=== PATIENT | female | born 1985 | race Caucasian/White ===

== ENCOUNTER → 2020-02-01 | Outpatient (CLI) | payer MEDICAID ==
[~2020-02-01] MED LIST: HYDR-4226 PO; OMEP20TA7 PO
[2020-02-01 15:34] LABS: BASOPHILS % (AUTO) 1 % (0-10); EOSINOPHILS % (AUTO) 1 % (0-10); HEMATOCRIT 32 % (35-52); HEMOGLOBIN 11.2 G/DL (11.5-16.0); LYMPHOCYTES % (AUTO) 21 % (12-44); MEAN CORPUSCULAR HEMOGLOBIN 33 PG (25-34); MEAN CORPUSCULAR HGB CONC 35 G/DL (32-36); MEAN CORPUSCULAR VOLUME 94 FL (80-99); MONOCYTES % (AUTO) 5 % (0-12); NEUTROPHILS % (AUTO) 71 % (42-75); PLATELET COUNT 282 10^3/uL (130-400); WHITE BLOOD COUNT 10.1 10^3/uL (4.3-11.0)
[2020-02-01 15:35] LABS: BASOPHILS # (AUTO) 0.1 10^3/uL (0.0-0.1); EOSINOPHILS # (AUTO) 0.1 10^3/uL (0.0-0.3); LYMPHOCYTES # (AUTO) 2.2 X 10^3 (1.0-4.0); MONOCYTES # (AUTO) 0.5 X 10^3 (0.0-1.0); NEUTROPHILS # (AUTO) 7.2 X 10^3 (1.8-7.8)
== END ==
LOC: LAB FS 14:06
PROVIDERS: ATTEND Family Medicine
DX: Z34.81 Encounter for supervision of other normal pregnancy, first trimester (principal)
CPT/HCPCS: 36415; 80055; 82105; 84702; 86336; 86703; 86762; 87088

== ENCOUNTER → 2020-02-02 | Outpatient (CLI) | payer MEDICAID | LOC: LABNPT 14:57 | PROVIDERS: ATTEND Family Medicine | DX: Z34.82 Encounter for supervision of other normal pregnancy, second trimester (principal) | CPT/HCPCS: 87491; 87591 ==

== ENCOUNTER → 2020-04-04 | Outpatient (CLI) | payer MEDICAID ==
[2020-04-04 15:04] LABS: WHITE BLOOD COUNT 11.6 10^3/uL (4.3-11.0)
[2020-04-04 15:05] LABS: MEAN PLATELET VOLUME 10.1 FL (7.4-10.4)
== END ==
LOC: LAB FS 14:15
PROVIDERS: ATTEND Family Medicine
DX: Z34.92 Encounter for supervision of normal pregnancy, unspecified, second trimester (principal)
CPT/HCPCS: 36415; 82950; 85027; 86780

== ENCOUNTER → 2020-04-14 | Outpatient (CLI) | payer MEDICAID | LOC: LAB FS 09:40 | PROVIDERS: ATTEND Family Medicine | DX: R73.09 Other abnormal glucose (principal) | CPT/HCPCS: 36415; 82951; 82952 ==

== ENCOUNTER → 2020-04-25 | Outpatient (CLI) | payer MEDICAID ==
--- NOTE | 2020-04-25 11:31 | Diagnostic Imaging Report ---
INDICATION: High risk . Evaluate growth. TECHNIQUE: Multiple real-time grayscale images were obtained over the gravid uterus. COMPARISON: None. FINDINGS: Single live intrauterine in cephalic presentation. Placenta is anteriorly positioned and there are no features of previa. The RAVINDER is normal at 14.1 cm. anatomic survey was not performed on this limited exam. Biometrical measurements are as follows: Biparietal 8.39 cm, age 33 weeks 6 days. Head circumference 30.42 cm, age 33 weeks 6 days. Abdominal circumference 28.45 cm, age 32 weeks 4 days. Femur length 6.28 cm, age 32 weeks 4 days. Sonographic estimate age: 33 weeks 2 days. Sonographic estimated date of delivery: 06/11/2020. Estimated Weight: 2038 gm (+/- 298 gm). LMP percentile: 77%. heart rate: 135 beats per minute. number: 1 of 1. IMPRESSION: 1. Single live intrauterine with an estimated gestational age of 33 weeks and 2 days. Dictated by: Dictated on workstation # [id number]
== END ==
LOC: RAD FS 07:55
PROVIDERS: ATTEND Family Medicine
DX: O09.93 Supervision of high risk pregnancy, unspecified, third trimester (principal); Z3A.33 33 weeks gestation of pregnancy
CPT/HCPCS: 76805

== ENCOUNTER 2020-06-17 10:36 | Inpatient (IN) | payer MEDICAID ==
[2020-06-17] VITALS (18 sets, daily range): BP systolic 117–197; BP diastolic 59–106
[~2020-06-17 10:36] MED LIST changes: +OXYTOCIN PRE-MIX DRIP 500 ML IV ONE
[2020-06-17] MEDS ORDERED: LIDOCAINE/EPI 2% 1:200,00 (XYLOCAINE) 10 ML VIAL ONE (10:40)
[2020-06-17] MEDS ORDERED: KETOROLAC 30 MG/ML VIAL ONE (10:45)
[2020-06-17] MEDS ORDERED: HYDROcodone/APAP 5 MG/325 MG (LORTAB) TAB ONE (10:45)
[2020-06-17] MEDS: OXYTOCIN PRE-MIX DRIP 500 ML IV SCH ×2 (10:46→11:26)
[2020-06-17] MEDS ORDERED: MEASLES,MUMPS,RUBELLA 1 EA INJ SQ ONE (11:15)
[2020-06-17] MEDS ORDERED: BENZOCAINE/MENTHOL (DERMOPLAST) 60 ML CAN TP PRN (11:15)
[2020-06-17] MEDS ORDERED: DIBUCAINE (NUPERCAINAL) 1% OINT 30 GM TOP PRN (11:15)
[2020-06-17] MEDS ORDERED: D5 LR IV SOLUTION 1,000 ML IV SCH (11:15)
[2020-06-17] MEDS ORDERED: WITCH HAZEL(TUCKS) 40 EA JAR TOP PRN (11:15)
[2020-06-17] MEDS ORDERED: KETOROLAC 30 MG/ML VIAL IVP ONE (11:15)
[2020-06-17] MEDS ORDERED: HYDROcodone/APAP 5 MG/325 MG (LORTAB) TAB PO PRN (11:15)
[2020-06-17] MEDS ORDERED: TETANUS,DIPTH,PERTUSS P/F (BOOSTRIX) 0.5 ML VIAL IM ONE (11:15)
--- NOTE | 2020-06-17 11:17 | History & Physical-OB ---
OB - Chief Complaint & HPI Date/Time Date of Admission: Date of Admission: Jun 17, 2020 at 10:36 am Date seen by a Provider: Jun 17, 2020 Time Seen by a Provider: 10:45 Chief Complaint/History OB-Reason for Admission/Chief: immediate Hx : 2 Hx Para: 2 Expected Date of Delivery: Jun 23, 2020 Gestational Age in Weeks: 39 Gestational Age in Days: 1 Other reason for admission: Patient brought in by EMS, having delivered in the ambulance. Placenta still not out. Patient reports having contractions that started at 0500 am, but that things got severe at 9 and she called EMS. Infant is bedside under warmer doing well upon my arrival. Admission Nurse Assessment Rev: Yes History of Labs B pos Antibody neg RI RPR NR HBsAg NR HIV NR GC neg GBS neg Allergies and Home Medications Allergies Coded Allergies: No Known Drug Allergies (Unverified , 06/17/19) Home Medications Hydrocodone/Acetaminophen 1 Each Tablet, 1 TAB PO Q6H Prescribed by: KENNY MCCALL on 06/17/19 1437 Omeprazole 20 Mg Tablet., 20 MG PO DAILY, (Reported) Patient Home Medication List Home Medication List Reviewed: Yes OB - History Hx of Present Care: Yes Ultrasounds: Normal mid trimester US Obstetrical Complications: None Medical Complications: None Patient Past Medical History n/A Social History/Family History 2nd Hand Smoke Exposure: Yes Immunizations Date of Influenza Vaccine: Jan 06, 2019 OB - Admission Exam Physical Exam HEENT: NCAT Heart: Rhythm Normal Lungs: Clear OB - Assessment/Plan/Diagnosis Assessment Admission Dx 34 yo 10-15 minute immediately PP from GBS neg Admission Status: Inpatient Order (span 2 midnights) Reason for Inpatient Admission: delivery Plan Other Plan Admission labs and pain meds ordered. Await delivery of placenta SHARLA THOMASON DO Jun 17, 2020 11:16 am
[2020-06-17] MEDS ORDERED: OXYTOCIN PRE-MIX DRIP 500 ML IV ONE (11:18)
--- NOTE | 2020-06-17 11:19 | Postpartum Progress Note ---
Note Note 10 min Subjective: Patient is cramping and uncomfortable, placenta is still in place. Objective: Physical Exam: Cord blood collected from umbilical cord, and then placenta is delivered intact. There is a 1st degree perineal laceration repaired using 3-0 rapide in usual fashion EBL during my evaluation 250mL Assessment: NVSD Precipitous delivery GBS neg Plan: Routine care. Encourage breast feeding. Encourage ambulation. Ferrous sulfate supplementation. SHARLA THOMASON DO Jun 17, 2020 11:19 am
[2020-06-17] MEDS ORDERED: hydrALAZINE (APESOLINE) 20 MG/ML VIAL IV PRN (12:45)
[2020-06-17] MEDS: LABETALOL 200 MG (NORMODYNE) TAB PO SCH ×2 (13:00→21:19)
[2020-06-17] MEDS ORDERED: CATHETER FLUSH 10 ML SYR IV SCH ×2 (14:00)
[2020-06-17 14:15] LABS: BASOPHILS % (AUTO) 0 % (0-10); EOSINOPHILS % (AUTO) 0 % (0-10); HEMATOCRIT 39 % (35-52); HEMOGLOBIN 13.2 g/dL (11.5-16.0); LYMPHOCYTES # (AUTO) 1.4 10^3/uL (1.0-4.0); LYMPHOCYTES % (AUTO) 10 % (12-44); MEAN CORPUSCULAR HEMOGLOBIN 33 pg (25-34); MEAN CORPUSCULAR HGB CONC 34 g/dL (32-36); MEAN CORPUSCULAR VOLUME 96 fL (80-99); MEAN PLATELET VOLUME 10.6 fL (9.0-12.2); MONOCYTES # (AUTO) 0.3 10^3/uL (0.0-1.0); MONOCYTES % (AUTO) 2 % (0-12); NEUTROPHILS # (AUTO) 11.9 10^3/uL (1.8-7.8); NEUTROPHILS % (AUTO) 86 % (42-75); PLATELET COUNT 224 10^3/uL (130-400); WHITE BLOOD COUNT 13.8 10^3/uL (4.3-11.0)
[2020-06-17 14:32] LABS: ALANINE AMINOTRANSFERASE 18 U/L (0-55); ALKALINE PHOSPHATASE 195 U/L (40-136); BILIRUBIN,TOTAL 0.2 MG/DL (0.1-1.0); BUN/CREATININE RATIO 13; CARBON DIOXIDE 17 MMOL/L (21-32); CHLORIDE 109 MMOL/L (98-107); CREATININE SERUM 0.62 MG/DL (0.60-1.30); GFR ESTIMATED > 60; GLUCOSE 145 MG/DL (70-105); POTASSIUM 3.9 MMOL/L (3.6-5.0); SODIUM 135 MMOL/L (135-145); TOTAL PROTEIN 5.9 GM/DL (6.4-8.2)
[2020-06-17] MEDS ORDERED: FLU QUADRIvalent (3YOA+) 60 mcg/0.5 ml 2020-21 (AFLURIA) IM ONE (15:30)
[2020-06-17] MEDS: IBUPROFEN 600 MG (MOTRIN) TAB PO SCH (17:52)
[2020-06-17] MEDS: DOCUSATE SODIUM 100 MG (COLACE) CAP PO SCH (21:19)
[2020-06-18] MEDS: IBUPROFEN 600 MG (MOTRIN) TAB PO SCH ×3 (00:13→12:36)
[2020-06-18 02:27] VITALS: BP 113/57
[2020-06-18 05:48] VITALS: BP 111/59
[2020-06-18 06:03] LABS: BASOPHILS # (AUTO) 0.1 10^3/uL (0.0-0.1); BASOPHILS % (AUTO) 0 % (0-10); EOSINOPHILS # (AUTO) 0.1 10^3/uL (0.0-0.3); EOSINOPHILS % (AUTO) 1 % (0-10); HEMATOCRIT 31 % (35-52); HEMOGLOBIN 10.4 g/dL (11.5-16.0); LYMPHOCYTES # (AUTO) 2.8 10^3/uL (1.0-4.0); LYMPHOCYTES % (AUTO) 25 % (12-44); MEAN CORPUSCULAR HEMOGLOBIN 33 pg (25-34); MEAN CORPUSCULAR HGB CONC 34 g/dL (32-36); MEAN CORPUSCULAR VOLUME 97 fL (80-99); MEAN PLATELET VOLUME 10.9 fL (9.0-12.2); MONOCYTES # (AUTO) 0.6 10^3/uL (0.0-1.0); MONOCYTES % (AUTO) 6 % (0-12); NEUTROPHILS # (AUTO) 7.5 10^3/uL (1.8-7.8); NEUTROPHILS % (AUTO) 67 % (42-75); PLATELET COUNT 197 10^3/uL (130-400); WHITE BLOOD COUNT 11.1 10^3/uL (4.3-11.0)
[2020-06-18] MEDS ORDERED: PRENATAL VITAMIN 1 EA TAB PO SCH (07:00)
[2020-06-18 08:34] VITALS: BP 128/65
[2020-06-18] MEDS: DOCUSATE SODIUM 100 MG (COLACE) CAP PO SCH (08:40)
[2020-06-18] MEDS: LABETALOL 200 MG (NORMODYNE) TAB PO SCH (08:43)
--- NOTE | 2020-06-18 08:49 | Postpartum Progress Note ---
Note Note Day # 1 Subjective: Patient is without complaints. Ambulating, voiding. Tolerating a regular diet without nausea or vomiting. Normal lochia. Pain is well controlled with oral pain medications. Objective: [] Physical Exam: General - Alert and oriented, no apparent distress Abdomen - Soft, appropriately tender to palpation, non-distended, fundus firm at umbilicus Extremities - no edema, negative Nader's bilaterally Assessment: PPD 1 , precipitous delivery in ambulance Acute blood loss anemia Peripartum hypertension resolved, holding labetalol today Plan: Routine care. Encourage breast feeding. Encourage ambulation. Ferrous sulfate supplementation. Plan for discharge tomorrow Vitals - Labs Vital Signs - I&O Vital Signs Date Time Temp Pulse Resp B/P (MAP) Pulse Ox O2 Delivery O2 Flow Rate FiO2 06/18/20 08:34 36.8 76 18 128/65 (86) 97 Room Air 06/18/20 05:48 36.6 75 18 111/59 (76) 97 Room Air 06/18/20 02:27 36.8 76 18 113/57 (75) 96 Room Air 06/17/20 22:15 36.8 84 18 117/59 (78) 97 Room Air 06/17/20 17:51 36.9 89 18 128/61 (83) 96 Room Air 06/17/20 13:57 36.6 74 20 117/77 (90) Room Air 06/17/20 13:42 87 20 139/85 (103) Room Air 06/17/20 13:27 78 20 135/79 (97) Room Air 06/17/20 13:13 74 20 142/82 (102) Room Air 06/17/20 12:57 76 20 179/76 (110) Room Air 06/17/20 12:42 76 20 156/85 (108) Room Air 06/17/20 12:28 64 20 162/83 (109) Room Air 06/17/20 12:12 60 20 156/89 (111) Room Air 06/17/20 11:57 62 20 168/96 (120) Room Air 06/17/20 11:44 65 20 168/97 (120) Room Air 06/17/20 11:43 71 20 182/101 (128) Room Air 06/17/20 11:27 71 20 161/81 (107) Room Air 06/17/20 11:13 73 20 169/101 (123) 97 Room Air 06/17/20 11:00 36.2 82 20 98 Room Air 06/17/20 10:57 77 20 184/106 (132) 99 Room Air 06/17/20 10:53 86 20 184/97 (126) I & O 06/18/20 07:00 Intake Total 1600 ml Balance 1600 ml Labs Laboratory Tests 06/17/20 14:02: White Blood Count 13.8H, Red Blood Count 4.04, Hemoglobin 13.2, Hematocrit 39, Mean Corpuscular Volume 96, Mean Corpuscular Hemoglobin 33, Mean Corpuscular Hemoglobin Concent 34, Red Cell Distribution Width 13.2, Platelet Count 224, Mean Platelet Volume 10.6, Immature Granulocyte % (Auto) 1, Neutrophils (%) (Auto) 86H, Lymphocytes (%) (Auto) 10L, Monocytes (%) (Auto) 2, Eosinophils (%) (Auto) 0, Basophils (%) (Auto) 0, Neutrophils # (Auto) 11.9H, Lymphocytes # (Auto) 1.4, Monocytes # (Auto) 0.3, Eosinophils # (Auto) 0.0, Basophils # (Auto) 0.0, Immature Granulocyte # (Auto) 0.1, Sodium Level 135, Potassium Level 3.9, Chloride Level 109H, Carbon Dioxide Level 17L, Anion Gap 9, Blood Urea Nitrogen 8, Creatinine 0.62, Estimat Glomerular Filtration Rate > 60, BUN/Creatinine Ratio 13, Glucose Level 145H, Calcium Level 8.0L, Corrected Calcium 8.8, Total Bilirubin 0.2, Aspartate Amino Transf (AST/SGOT) 14, Alanine Aminotransferase (ALT/SGPT) 18, Alkaline Phosphatase 195H, Total Protein 5.9L, Albumin 3.0L 06/18/20 05:31: White Blood Count 11.1H, Red Blood Count 3.15L, Hemoglobin 10.4#L, Hematocrit 31L, Mean Corpuscular Volume 97, Mean Corpuscular Hemoglobin 33, Mean Corpuscular Hemoglobin Concent 34, Red Cell Distribution Width 13.7, Platelet Count 197, Mean Platelet Volume 10.9, Immature Granulocyte % (Auto) 1, Neutrophils (%) (Auto) 67, Lymphocytes (%) (Auto) 25, Monocytes (%) (Auto) 6, Eosinophils (%) (Auto) 1, Basophils (%) (Auto) 0, Neutrophils # (Auto) 7.5, Lymphocytes # (Auto) 2.8, Monocytes # (Auto) 0.6, Eosinophils # (Auto) 0.1, Basophils # (Auto) 0.1, Immature Granulocyte # (Auto) 0.1 SHARLA THOMASON DO Jun 18, 2020 08:49
[2020-06-18] MEDS ORDERED: FERROUS SULF 325 MG (IRON) TAB PO SCH (09:00)
[2020-06-18] MEDS ORDERED: DCS100C PO (09:16)
[2020-06-18] MEDS ORDERED: ACHD5005 PO (09:16)
[2020-06-18] MEDS ORDERED: BENZ78AE5 TP (09:16)
[2020-06-18] MEDS ORDERED: IBUP-844 PO (09:16)
--- NOTE | 2020-06-18 09:17 | Discharge Inst-Women's Service ---
Discharge Inst-Women's Serv Depart Medication/Instructions New, Converted or Re-Newed RX: RX on Chart Final Diagnosis POD 2 RLTCS Problems Reviewed?: Yes Consults/Follow Up Additional Follow Up: Yes Orders/Referrals Dr. Woodruff in 7-10 days and in 6 weeks Activity Activity: Activity as Tolerated Driving Instructions: No Driving for 1 Week NO SMOKING: NO SMOKING Nothing Inside Vagina: No Douching, No [place], No Tampons Diet Discharge Diet: No Restrictions Symptoms to Report to : Bleeding Excessive, Pain Increased, Fever Over 101 Degrees F, Vaginal Bleeding Increase, Questions/Concerns For Any Problems or Questions: Contact Your Physician Skin/Wound Care Infection Signs and Symptoms: Increased Redness, Foul Odor of Wound, Increased Drainage, Skin Itchy or Has a Rash, Increased Swelling, Temperature Above 101 F Operative Area Clean and Dry: Keep Incision Clean/Dry Stitches/Mae/Dermabond: Dermabond, Care of Stitches Bathing Instructions: SHARLA Buckner DO Jun 18, 2020 09:17
[2020-06-18 11:28] VITALS: BP 112/72
[2020-06-18 14:57] VITALS: BP 121/61
[2020-06-18 16:10] VITALS: BP 121/61
== END 2020-06-18 16:10 | disposition home or self-care (01) | DRG 776 ==
LOC: LDRP 10:36
PROVIDERS: ADMIT Obstetrics & Gynecology; ATTEND Obstetrics & Gynecology
PROC: 10E0XZZ Delivery of Products of Conception, External Approach (ICD-10-PCS; principal; 2020-06-17)
PROC: 0HQ9XZZ Repair Perineum Skin, External Approach (ICD-10-PCS; 2020-06-17)
DX: O70.0 First degree perineal laceration during delivery (principal); D62 Acute posthemorrhagic anemia; O90.81 Anemia of the puerperium; O16.5 Unspecified maternal hypertension, complicating the puerperium
CPT/HCPCS: 36415; 80053; 85025; 86850; 86900; 86901; 90686